=== PATIENT | female | born 1985 | race Caucasian/White ===

== ENCOUNTER 2018-03-18 04:37 | Inpatient (IN) ==
--- NOTE | 2018-03-18 04:57 | Emergency Department Note ---
Disposition Clinical Impression: Precipitous delivery Disposition: Admitted As Inpatient Condition: Good HPI - General Chief complaint: ED OB/Uterine Contractions Stated complaint: Time Seen by Provider: 03/18/18 04:46 Source: patient, family Mode of arrival: private vehicle Limitations: no limitations Nursing Notes Reviewed: Yes Vital Signs Reviewed: Yes - History of Present Illness HPI Narrative: 33-year-old female presents to the emergency department via private vehicle after home . Mother was 34 weeks . Follows with [facility]. Reports no complications during . She had contractions earlier in the day which culminated into a home which was unplanned. The patient and family got into their vehicle and came for evaluation. The patient was evaluated in the parking lot and taken to the trauma bay for evaluation. The baby remained connected to the placenta upon arrival. [facility]ICOND[employer]CTOR WAFERS TESTER in the NICU were paged for emergent evaluation and were present at bedside soon after arrival. Mother voices no concerns upon evaluation. Pt Subjective Complaint: other (Delivery) Onset (ago): Just BEHAVIORAL ANALYST OB History - Current : no complications If care: followed by OB - Related Data Home Medications Medication Instructions Recorded Confirmed #103/Iron Fumarate/FA 1 mg PO DAILY 01/03/17 03/18/18 [ Tablet] Buprenorphine HCl [Subutex] 1 tab PO BID 03/18/18 03/18/18 Allergies Allergy/AdvReac Type Severity Reaction Status Date / Time Penicillins Allergy Hives Verified 03/18/18 05:49 All systems ED: reviewed and negative except as stated. Gastrointestinal: Denies: abdominal pain, vomiting Genitourinary: Reports: other (Cramping) PMH - Social History Smoking Status: Current every day smoker Alcohol use: Reports: none Drug use: Reports: other Physical Exam - General Limitations: no limitations General appearance: alert, in no apparent distress - Head Head exam: atraumatic, normocephalic - Eye Eye exam: Present: normal appearance - ENT ENT exam: normal exam - Neck Neck exam: Present: normal inspection - Chest Chest inspection: Present: normal inspection, symmetric chest wall rise - Respiratory Respiratory exam: Present: normal lung sounds bilaterally - Cardiovascular Cardiovascular exam: Present: regular rate, normal rhythm, normal heart sounds - Abdominal Exam Abdominal exam: Present: soft, Non-Tender. Absent: tenderness, distention, rigidity - Female External Exam: Present: other (Umbilical cord present.) - Extremities Exam Extremities exam: Present: normal inspection - Expanded Upper Extremity Exam Shoulder exam: Present: normal inspection Arm exam: Present: normal inspection Elbow exam: Present: normal inspection Forearm/Wrist exam: Present: normal inspection Hand exam: Present: normal inspection - Expanded Lower Extremity Exam Hip/Pelvis exam: Present: normal inspection Upper leg exam: Present: normal inspection Knee exam: Present: normal inspection Lower leg exam: Present: normal inspection Ankle exam: Present: normal inspection Foot/toe exam: Present: normal inspection - Skin Skin exam: Present: warm, dry Course Course Narrative: Patient seen and examined at time of arrival. [facility] [facility] contacted and evaluated the patient soon after arrival in the trauma bay. Placenta delivered. Hemodynamically stable. Plan to admit to labor and delivery. Vital Signs Temperature 98.7 F 03/18/18 04:39 Pulse Rate 90 03/18/18 04:39 Respiratory Rate 16 03/18/18 04:39 Blood Pressure 117/75 03/18/18 04:39 O2 Sat by Pulse Oximetry 100 03/18/18 04:39 Temperature 98.7 F 03/18/18 04:39 Pulse Rate 90 03/18/18 04:39 Respiratory Rate 16 03/18/18 04:39 Blood Pressure 117/75 03/18/18 04:39 O2 Sat by Pulse Oximetry 100 03/18/18 04:39 Oxygen Delivery Oxygen Delivery Room Air OB/Uterine Contractions - MDM Narrative Medical decision making narrative: 33-year-old female presents after home . Hemodynamically stable. Evaluated by [facility] in the trauma bay. Umbilical cord was cut and placenta was delivered. The patient was admitted to labor and delivery for further evaluation and management. Attestation Statement - Attestation Attestation: DR Boo note: Pt seen in conjunction w/ resident DR Rico; Please see his charting for complete documentation; I spent face to face time w/the pt and agree w/ the pt's disposition; Patient arrived in the parking lot seated in the front seat of her car being driven by her significant other. She was holding a baby that she had just delivered at home before getting in the car and driving the hospital. The umbilical cord was lethargic. Patient's bleeding had resolved. She had no significant pain or distress on arrival. Her vital signs are stable. This was at least a patient's third . Child was reportedly 30 weeks gestation. Possible history of prior IV drug abuse. After stabilization in the trauma bay patient was monitored in the umbilical cord was cut. She was then transferred in stable and improved condition to the obstetrics and gynecology floor for further care. She was seen in the ER by will be nurses and the OB nurse knurling machine operator.
--- NOTE | 2018-03-18 05:19 | OB/GYN Procedure Note ---
OB-PORTFOLIO ADMINISTRATOR: Procedure - Diagnosis Date of procedure: 03/18/18 Pre-op diagnosis: s/p vaginal delivery at home Post-op diagnosis: same - Procedure Procedure: delivery of placenta Surgeon: Kiana Armas (JOAQUIN) Was there an environmental services assistant present: No Anesthesia Type: None Estimated blood loss (cc): 200 Procedure Complications: none Specimens collected: placenta and umbilical cord Findings: Placenta delivered spontaneous and intact, no lacerations noted. EBL 200ml Narrative: Pt presented to ED s/p vaginal delivery at home. Placenta delivered spontaneous and intact. Perineum intact. EBL 200ml.
[2018-03-18] MEDS ORDERED: Ibuprofen 600 MG TABLET PO PRN (05:43)
[2018-03-18] MEDS ORDERED: Oxytocin 20 units/ LR 1000 mL 20 UNIT/1,000 ML BAG IVC SCH (05:43)
[2018-03-18] MEDS ORDERED: Measles/Mumps/Rubella Vacc 0.5 ML VIAL SQ PRN (05:43)
[2018-03-18] MEDS ORDERED: Acetaminophen 325 MG TABLET PO PRN (05:43)
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
[2018-03-18 06:40] LABS: Amphetamine Screen,Urine Negative ng/mL (Cutoff=1000); Barbiturate Screen,Urine Negative ng/mL (Cutoff=200)
[2018-03-18 06:41] LABS: Benzodiazepines Screen,Urine Negative ng/mL (Cutoff=300); Cannabinoid Screen,Urine Negative ng/mL (Cutoff = 50); Cocaine Screen,Urine Negative ng/mL (Cutoff= 300); Opiate Screen,Urine Negative ng/mL (Cutoff=300); Phencyclidine Screen,Urine Negative ng/mL (Cutoff=25)
[2018-03-18 06:53] LABS: Basophils # 0.1 K/mcL (0.0-0.2); Basophils % 0.4 %; Eosinophils # 0.1 K/mcL (0.0-0.6); Eosinophils % 0.3 %; Hematocrit 28.4 % (35.3-44.9); Hemoglobin 9.2 g/dL (11.5-15.4); Immature Granulocytes % 1.8 % (0-4); Lymphocytes # 1.7 K/mcL (0.6-4.6); Lymphocytes % 8.5 %; Mean Corpuscular HGB Conc 32.4 g/dL (31.6-35.5); Mean Corpuscular Hemoglobin 27.8 pg (28.0-33.3); Mean Corpuscular Volume 85.8 fL (83.0-100.0); Mean Platelet Volume 11.4 fL (9.4-12.4); Monocytes % 5.2 %; Neutrophils # 16.7 K/mcL (1.6-8.9); Platelet Count 303 K/mcL (140-400); Red Blood Count 3.31 M/mcL (3.82-4.97); Red Cell Distribution Width 12.8 % (11.5-14.5); Segmented Neutrophils % 83.8 %
[2018-03-18] MEDS ORDERED: Prenatal Vit/FA 1 EACH TABLET PO SCH (09:00)
[2018-03-19 08:45] VITALS: BP 100/60
--- NOTE | 2018-03-19 09:59 | Discharge Summary ---
Date of Encounter: 03/19/18 Time of Encounter: 09:56 - Discharge Diagnosis (1) Status post vaginal delivery Priority: Primary Status: Acute Comments: S/P vaginal delivery day 1 Pain is well controlled Lochia is light and without clots VSS Tolerating regular diet; passing flatus Urinating without difficulty Breast feeding Discharge home today - Discharge Medications Prescriptions: Ibuprofen [Motrin] 600 mg PO Q6HR PRN #30 tablet PRN Reason: Cramping Breast Pump [BREAST PUMP] 1 each .ROUTE AD #1 each Docusate [Colace] 100 mg PO BID #30 capsule Ferrous Sulfate 325 mg PO BIDWM #180 tablet Home Medications: #103/Iron Fumarate/FA [ Tablet] 1 mg PO DAILY 01/03/17 [History] Buprenorphine HCl [Subutex] 1 tab PO BID 03/18/18 [History] Acetaminophen [Tylenol] 650 mg PO Q6HR PRN tablet 03/19/18 [Rx] Breast Pump [BREAST PUMP] 1 each .ROUTE AD #1 each 03/19/18 [Rx] Docusate [Colace] 100 mg PO BID #30 capsule 03/19/18 [Rx] Ferrous Sulfate 325 mg PO BIDWM #180 tablet 03/19/18 [Rx] Ibuprofen [Motrin] 600 mg PO Q6HR PRN #30 tablet 03/19/18 [Rx] Allergies/Adverse Reactions: 3 Allergy/AdvReac Type Severity Reaction Status Date / Time Penicillins Allergy Hives Verified 03/18/18 05:49 Data Procedures and tests throughout hospitalization: Laboratory Tests 03/18/18 03/18/18 03/18/18 05:45 06:40 06:40 WBC 19.9 H RBC 3.31 L Hgb 9.2 L Hct 28.4 L MCV 85.8 MCH 27.8 L MCHC 32.4 RDW 12.8 Plt Count 303 MPV 11.4 Immature Gran % 1.8 Seg Neutrophils % 83.8 Lymphocytes % 8.5 Monocytes % 5.2 Eosinophils % 0.3 Basophils % 0.4 Neutrophils # 16.7 H Lymphocytes # 1.7 Monocytes # 1.0 Eosinophils # 0.1 Basophils # 0.1 Urine Opiates Screen Negative Ur Barbiturates Screen Negative Ur Phencyclidine Scrn Negative Ur Amphetamines Screen Negative U Benzodiazepines Scrn Negative Urine Cocaine Screen Negative U Marijuana (THC) Screen Negative Ur Drug Screen Interp See Below Hep Bs Antigen Nonreactive Date of admission: 03/18/18 05:31 Primary care physician: PCP NONE Discharging clinician: Kimberly Morfin Anticipated date of discharge: 03/19/18 - Patient Status Disposition: Home, Self-Care Condition: Good Functional capacity at discharge: independent ambulation Overall status at discharge: patient is progressing back to baseline - Discharge Instructions Follow Up With: NONE,PCP [Primary Care Provider] - Kiana Armas CNM [Non-Partnered Physician] - - Diet and Activity Activity: increase activity as tolerated Diet: regular diet Hospital Course Reason for admission: IUP at term Delivery: Episiotomy: none Laceration: none Other procedures: none complications: none Discharge diagnosis: IUP at term delivered baby: female Time spent discussing smoking cessation with patient: 3 to 10 minutes Time Attestation: Total time spent providing and/or coordinating discharge services: Time Spent: Less than 30 minutes Exam - Constitutional Vitals: Temp Pulse Resp BP Pulse Ox 97.9 F 84 14 100/60 99 03/19/18 07:25 03/19/18 08:02 03/19/18 08:02 03/19/18 07:25 03/19/18 06:10 General appearance IM: cooperative, A&O X 3, pleasant - Respiratory Respiratory exam: Present: CTAB - Cardiovascular Cardiovascular exam IM: Present: RRR, +S1, +S2 - GI/Abdominal GI/Abdominal exam IM: normal bowel sounds, soft - Rectal Rectal exam: deferred - Uterine Tone: Firm Uterus Position: 1 Finger Below Umbilicus, Midline - Extremities Exam Extremities exam IM: Present: normal capillary refill, normal inspection, radial pulses palpable and symmetrical - Neurological Exam Neurological exam: alert, oriented X3
== END 2018-03-19 10:34 | disposition home or self-care (01) | DRG 775 ==
LOC: EMEROOARM 04:37 → 1NENULAB 04:37 → EMEROOARM 05:06 → UNDODISOB 05:12 → 1NENUOBS 07:35
PROVIDERS: ADMIT Registered Nurse; ATTEND Registered Nurse